=== PATIENT | female | born 1960 | race African-American/Black ===

== ENCOUNTER 2020-10-24 07:00 | Inpatient (IN) | payer MEDICAID ==
[~2020-10-24] VITALS: Ht 167.6 cm; Wt 92.3 kg
[2020-10-24] MEDS ORDERED: IPRATROPIUM BROMIDE (0.02%) 0.5MG/2.5ML NEB HHN STA (07:05)
[2020-10-24 08:05] LABS: BASOPHILS % 0.8 % (0.0-2.0); EOSINOPHILS % 3.2 % (0.0-5.0); HEMATOCRIT. 39.8 % (36.0-48.0); HEMOGLOBIN. 12.6 g/dL (12.0-16.0); LYMPHOCYTES % 34.1 % (20.0-50.0); MEAN CORPUSCULAR HEMOGLOBIN 22.9 pg (28.0-32.0); MEAN CORPUSCULAR VOLUME 72.7 fL (81.0-99.0); MEAN PLATELET VOLUME 9.3 fl (7.4-10.4); MONOCYTES % 4.5 % (2.0-8.0); NEUTROPHILS % 57.4 % (40.0-76.0); PLATELET 271 x1000/uL (130-400); RED BLOOD CELL COUNT 5.47 mill/uL (4.2-5.4); RED CELL DISTRIBUTION WIDTH 19.7 % (11.6-14.6)
[2020-10-24] MEDS ORDERED: ALBUTEROL (0.083%) 2.5MG/3ML NEB ONE (08:07)
[2020-10-24 08:10] LABS: CHLORIDE 106 mEq/L (98-107)
[2020-10-24 08:13] LABS: INR 1.1; PROTHROMBIN TIME 11.9 sec (9.6-11.0)
[2020-10-24] MEDS ORDERED: FUROSEMIDE 20MG/2ML VIAL IVP ONE (08:30)
[2020-10-24 08:45] LABS: CLARITY URINE CLEAR (CLEAR); COLOR URINE YELLOW (YELLOW); KETONES URINE NEGATIVE (NEGATIVE); LEUKOCYTE ESTERASE URINE NEGATIVE (NEGATIVE); NITRITE URINE NEGATIVE (NEGATIVE); OCCULT BLOOD URINE NEGATIVE (NEGATIVE); PH URINE 5.5 (4.5-8.0); PROTEIN URINE 3+ (NEGATIVE); SPECIFIC GRAVITY URINE 1.022 (1.005-1.030); UROBILINOGEN URINE 0.2 E.U./dL (0.2-1.0)
[2020-10-24 09:04] LABS: BG BASE EXCESS -3.5 mmol/L (-2.0-2.0); BG CARBOXYHEMOGLOBIN 0.3 % (0.5-1.5); BG FRACTION INSPIRED OXYGEN 50; BG METHEMOGLOBIN 0.1 % (0.0-1.5); BG OXYHEMOGLOBIN 98.6 % (94.0-97.0); BG PCO2 47.4 mmHg (35.0-45.0); BG PH 7.303 (7.350-7.450); BG PO2 301.8 mmHg (75.0-100.0); BG SAMPLE SITE RIGHT RADIAL; BG TOTAL RESPIRATORY RATE 22 b/min; BG VENT MODE MASK - BIPAP
[2020-10-24] MEDS ORDERED: LEVOFLOXACIN 500MG PREMIX 100 ML IV ONE (09:30)
[2020-10-24] MEDS ORDERED: ALBUTEROL 6.7GM HFA INHALER ORI PRN (11:30)
[2020-10-24] MEDS ORDERED: ONDANSETRON HCL 4MG/2ML INJ IV PRN (11:30)
[2020-10-24] MEDS ORDERED: BENZONATATE 100MG CAPSULE PO PRN (11:30)
[2020-10-24] MEDS ORDERED: DEXTROSE 50% WATER 50ML SYRINGE IV PRN (11:30)
[2020-10-24] MEDS ORDERED: METHYLPREDNISOLONE SOD SUCC 40 MG/ML VIAL IV SCH (12:00)
[2020-10-24] MEDS ORDERED: LEVOFLOXACIN 500MG PREMIX 100 ML IV SCH (12:30)
[2020-10-24] MEDS: INSULIN LISPRO 100 UNITS/ML SUBCUT SCH ×4 (12:56→21:16)
[2020-10-24] MEDS: BLOOD SUGAR DIAGNOSTIC STRIP TEST SCH ×3 (13:26→21:05)
[2020-10-24] MEDS ORDERED: INSULIN GLARGINE UD 100 UNITS/ML SYR SUBCUT NR (13:30)
[2020-10-24 16:00] VITALS: BP 152/107
[2020-10-24 16:06] VITALS: BP 157/100
[2020-10-24] MEDS: METHYLPREDNISOLONE SOD SUCC 40 MG/ML VIAL IV SCH (17:59)
[2020-10-24] MEDS: AMLODIPINE 10MG TABLET PO SCH (17:59)
[2020-10-24 18:00] VITALS: BP 130/89
[2020-10-24 20:00] VITALS: BP 152/97
[2020-10-24] MEDS: FAMOTIDINE 20MG TABLET PO SCH (21:05)
[2020-10-24 22:00] VITALS: BP 139/87
[2020-10-24] MEDS ORDERED: INSULIN GLARGINE UD 100 UNITS/ML SYR SUBCUT SCH (22:00)
[2020-10-24] MEDS: ACETAMINOPHEN 325MG TABLET PO PRN (22:37)
[2020-10-25] VITALS (9 sets, daily range): BP systolic 110–165; BP diastolic 52–90
[2020-10-25] MEDS: IPRATROPIUM/ALBUTEROL 0.5-3(2.5)MG/3ML NEB HHN SCH ×4 (00:28→12:50)
[2020-10-25] MEDS: METHYLPREDNISOLONE SOD SUCC 40 MG/ML VIAL IV SCH ×2 (00:28→05:42)
[2020-10-25 07:07] LABS: HEMOGLOBIN. 11.2 g/dL (12.0-16.0); MEAN CORPUSCULAR HEMOGLOBIN 23.1 pg (28.0-32.0); MEAN CORPUSCULAR VOLUME 71.9 fL (81.0-99.0); MEAN PLATELET VOLUME 9.4 fl (7.4-10.4); PLATELET 231 x1000/uL (130-400); RED BLOOD CELL COUNT 4.87 mill/uL (4.2-5.4); RED CELL DISTRIBUTION WIDTH 19.8 % (11.6-14.6)
[2020-10-25 07:09] LABS: CHLORIDE 104 mEq/L (98-107)
[2020-10-25] MEDS: BLOOD SUGAR DIAGNOSTIC STRIP TEST SCH ×3 (08:14→17:11)
[2020-10-25] MEDS ORDERED: ENOXAPARIN 40MG/0.4ML SYR SUBCUT SCH (09:00)
[2020-10-25] MEDS: FAMOTIDINE 20MG TABLET PO SCH (09:32)
[2020-10-25] MEDS: AMLODIPINE 10MG TABLET PO SCH (09:34)
[2020-10-25] MEDS: INSULIN LISPRO 100 UNITS/ML SUBCUT SCH ×3 (09:36→17:11)
[2020-10-25] MEDS: ACETAMINOPHEN 325MG TABLET PO PRN (09:37)
[2020-10-25] MEDS ORDERED: INSULIN GLARGINE UD 100 UNITS/ML SYR SUBCUT SCH (10:00)
[2020-10-25] MEDS: METHYLPREDNISOLONE SOD SUCC 125 MG/2 ML VIAL IV SCH ×2 (11:37→17:31)
[2020-10-25] MEDS ORDERED: LEVOFLOXACIN 500MG PREMIX 100 ML IV SCH (12:00)
[2020-10-25 14:08] LABS: PLATELET ESTIMATE NORMAL
[2020-10-26] MEDS ORDERED: METHYLPREDNISOLONE SOD SUCC 125 MG/2 ML VIAL IV SCH (09:00)
== END 2020-10-25 19:00 | disposition left against medical advice (07) | DRG 133 ==
LOC: ER 07:22 → 5EST 10:18 → ENRESERV 12:22 → EDBEDREQSVC 13:01
PROVIDERS: ADMIT Internal Medicine; ATTEND Internal Medicine
PROC: 5A09357 Assistance with Respiratory Ventilation, Less than 24 Consecutive Hours, Continuous Positive Airway Pressure (ICD-10-PCS; principal; 2020-10-24)
DX: J96.01 Acute respiratory failure with hypoxia (principal); J44.1 Chronic obstructive pulmonary disease with (acute) exacerbation; I11.0 Hypertensive heart disease with heart failure; J18.9 Pneumonia, unspecified organism; I16.1 Hypertensive emergency; E44.1 Mild protein-calorie malnutrition; E66.2 Morbid (severe) obesity with alveolar hypoventilation; E11.9 Type 2 diabetes mellitus without complications; E87.2 Acidosis; K21.9 Gastro-esophageal reflux disease without esophagitis; R00.0 Tachycardia, unspecified; E78.5 Hyperlipidemia, unspecified; Z20.822 Contact with and (suspected) exposure to COVID-19; J44.0 Chronic obstructive pulmonary disease with (acute) lower respiratory infection; I25.10 Atherosclerotic heart disease of native coronary artery without angina pectoris; I50.21 Acute systolic (congestive) heart failure; Z68.32 Body mass index [BMI] 32.0-32.9, adult; Z82.49 Family history of ischemic heart disease and other diseases of the circulatory system
CPT/HCPCS: 36415; 36600; 71045; 80048; 80053; 81003; 82375; 82805; 82962; 83036; 83605; 83880; 84145; 84484; 85025; 87426; 93005; 93306; 94640; 94644; 94660; 99291; J1650; J1815; J1940; J1956; J2920; J2930